=== PATIENT | female | born 1955 | race Caucasian/White ===

== ENCOUNTER 2019-04-16 01:11 | Observation (INO) ==
[2019-04-16] MEDS ORDERED: DUONEB (A & A) INH ONE (01:48)
[2019-04-16] MEDS ORDERED: SOLU-MEDROL IV ONE (01:48)
--- NOTE | 2019-04-16 02:10 | EKG Report ---
Test Performed on : 04/16/2019 01:16:20 AM Test Reason : SOB Blood Pressure : / mmHG Vent. Rate : 085 BPM Atrial Rate : 085 BPM P-R Int : 174 ms QRS Dur : 092 ms QT Int : 422 ms P-R-T Axes : -02 -34 084 degrees QTc Int : 502 ms Normal sinus rhythm. Left axis deviation Voltage criteria for left ventricular hypertrophy Cannot rule out Septal infarct , age undetermined T wave abnormality, consider lateral ischemia Abnormal ECG No previous ECGs available Unconfirmed Result
[2019-04-16 02:25] LABS: HEMATOCRIT 28.8 % (37.0-47.0); RBC 3.15 XMIL (4.2-5.4); WBC 6.26 X1000 (4.8-10.8)
[2019-04-16 02:26] LABS: BASO# 0.01 X1000 (0.0-0.2); BASO% 0.2 % (0.0-0.8); EOS# 0.08 X1000 (0.0-0.7); EOS% 1.3 % (0.0-10.0); IMM GRAN# 0.02 X1000 (0.0-0.04); IMM GRAN% 0.3 % (0.0-0.5); LYMPH# 1.01 X1000 (1.2-3.4); LYMPH% 16.1 % (20.5-51.1); MCH 31.7 PG (27-31); MCHC 34.7 g/dL (33-37); MCV 91.4 FL (81-99); MONO# 0.54 X1000 (0.11-0.59); MONO% 8.6 % (1.7-9.3); MPV 8.8 FL (7.4-10.4); NEUT% 73.5 % (42.2-75.2); PLT 161 X1000 (130-400); RDW 12.4 % (11.5-14.5)
[2019-04-16 03:07] LABS: ALBUMIN 3.8 g/dL (3.5-5.0); CALCIUM 8.9 mg/dL (8.8-10.2); POTASSIUM 3.9 mmol/L (3.5-5.1); TOTAL BILIRUBIN 0.73 mg/dL (0.20-1.00); TOTAL PROTEIN 5.7 g/dL (6.3-8.3)
[2019-04-16] MEDS ORDERED: BUMEX IV ONE (03:25)
--- NOTE | 2019-04-16 03:42 | PROVIDER DOCUMENTATION ---
This chart was entered by Arina Cotsa Scribe, acting as scribe for Thomas Cortés MD. HPI-Respiratory General - General Chief Complaint: Shortness of Breath Stated Complaint: SOB Time Seen by Provider: 04/16/19 01:34 Source: patient Allergies/Adverse Reactions: Patient Allergies Allergy/AdvReac Type Severity Reaction Status Date / Time Sulfa (Sulfonamide Allergy RASH Verified 12/10/17 23:34 Antibiotics) Home Medications: Home Medication List Medication Instructions Recorded Confirmed Last Taken Type Cholecalciferol (Vitamin D3) 1,000 unit PO DAILY 04/16/19 04/16/19 Unknown History [Vitamin D3] Insulin Glargine,Hum.rec.anlog 55 unit SQ DAILY 04/16/19 04/16/19 Unknown History [Lantus Solostar] Insulin Lispro [Humalog] 22 unit SQ TID 04/16/19 04/16/19 Unknown History Iron,Carbonyl [Iron] 65 mg PO DAILY 04/16/19 04/16/19 Unknown History Levothyroxine Sodium [Synthroid] 200 microgm PO DAILY 04/16/19 04/16/19 Unknown History Lisinopril 20 mg PO DAILY 04/16/19 04/16/19 Unknown History Metformin HCl [Metformin HCl ER] 500 mg PO DAILY 04/16/19 04/16/19 Unknown History Metoprolol Succinate 1 tab PO DAILY 04/16/19 04/16/19 Unknown History Rosuvastatin Calcium [Crestor] 40 mg PO DAILY 04/16/19 04/16/19 Unknown History Vitamin B Complex 1 ea PO DAILY 04/16/19 04/16/19 Unknown History - History of Present Illness-Resp Nature of Presenting Problem: Pt is 63/F presenting to ED w/ SOB that she sts has been present for the last week, but has worsened tonight. Pt sts that the only change that she has had in her medications recently is her upped her toperol. Pt denies any c/p or palpitations. Pt has hx of sleep apnea. Quality of Pain: reports: none Severity in ED: reports: moderate Onset/Duration: reports: 1 week ago Timing: reports: getting worse Exposure: reports: unknown cause Cough Quality/Degree: reports: no cough Episode Frequency: no prior episodes Current Respiratory Medication Therapy: Initiated none Modifying Factors: improves with: nothing Associated Symptoms: reports: shortness of breath. denies: cough Similar Symptoms Previously?: No Recently seen or treated by another doctor?: No Review of Systems - Adult - REVIEW OF SYSTEMS - ADULT Constitutional: reports: no symptoms reported. denies: chills, fever Eyes: reports: no symptoms reported Ears, Nose, Mouth & Throat: reports: no symptoms reported Cardiovascular: denies: chest pain Respiratory: reports: shortness of breath. denies: cough Gastrointestinal: reports: no symptoms reported Genitourinary: reports: no symptoms reported Musculoskeletal: reports: no symptoms reported Integumentary: reports: no symptoms reported Neurological: reports: no symptoms reported. denies: dizziness/vertigo, headache/migraines Psychiatric: reports: no symptoms reported Endocrine: reports: no symptoms reported Hematologic/Lymphatic: reports: no symptoms reported Allergic/Immunologic: reports: no symptoms reported All Other Systems: Reviewed and Negative Past History - Adult - PAST MEDICAL HISTORY-ADULT Review of Records: reports: Old Records Reviewed, Nursing Assessment Review, Medications Reviewed, Social history reviewed & non-contributory. Cardiovascular: reports: HTN Endocrine/Immune: reports: Diabetes - IMMUNIZATION STATUS Childhood Immunizations: See Nurse Assessment Flu Vaccine: See Nurse Assessment - SOCIAL HISTORY Smoking: denies, non-smoker Substance Use: none/never Living Situation: family Physical Exam-General - PHYSICAL EXAM-ADULT Initial Vital Signs Reviewed: Yes - CONSTITUTIONAL General Appearance: appears well, alert, no apparent distress - EYES Eyes: PERRL/EOMI, pink conjunctivae - HEAD, EARS, NOSE, MOUTH & THROAT HENMT: normocephalic/atraumatic, moist mucous membranes, normal ENT inspection, TMs normal, pharynx normal - NECK Neck: non-tender, full range of motion, supple - RESPIRATORY Respiratory: increased rate (26) - CARDIOVASCULAR Cardiovascular: regular rate, rhythm - MUSCULOSKELETAL Back Exam: normal inspection Extremity: normal range of motion, non-tender, normal gait, normal inspection - SKIN Integumentary: normal color, warm/dry - NEUROLOGIC Neurologic: grossly normal - PSYCHIATRIC Psych/Mental Status: normal mood/affect, normal thought content, normal thought process, oriented x 3 Progress - PLAN OF CARE/RESULTS Progress/Plan/Lab Results: Vital Signs - 8 hr 04/16/19 01:20 04/16/19 02:26 Temperature 99.1 F Pulse Rate 83 85 Respiratory Rate 26 H 15 Blood Pressure 183/78 O2 Sat by Pulse Oximetry 90 L Laboratory Results - last 24 hr 04/16/19 04/16/19 04/16/19 02:15 02:15 02:15 WBC 6.26 RBC 3.15 L Hgb 10.0 L Hct 28.8 L MCV 91.4 MCH 31.7 H MCHC 34.7 RDW Std Deviation 12.4 Plt Count 161 MPV 8.8 Immature Gran % (Auto) 0.3 Neut % (Auto) 73.5 Lymph % (Auto) 16.1 L [place] % (Auto) 8.6 Eos % (Auto) 1.3 Baso % (Auto) 0.2 Immature Gran # (Auto) 0.02 Neut # (Auto) 4.60 Lymph # (Auto) 1.01 L [place] # (Auto) 0.54 Eos # (Auto) 0.08 Baso # (Auto) 0.01 Sodium 140 Potassium 3.9 Chloride 102 Carbon Dioxide 25 Anion Gap 13 BUN 19 Creatinine 1.0 H Estimated GFR/1.73 m2 56 BUN/Creatinine Ratio 19 Glucose 268 H Calculated Osmolality 291 Calcium 8.9 Total Bilirubin 0.73 AST 12 ALT 14 Alkaline Phosphatase 17 L Troponin T Ahy-W-Thcoubbxwfq Pept 706 H Total Protein 5.7 L Albumin 3.8 Globulin 1.9 Albumin/Globulin Ratio 2.0 Plasma Lactate 04/16/19 04/16/19 02:15 02:20 WBC RBC Hgb Hct MCV MCH MCHC RDW Std Deviation Plt Count MPV Immature Gran % (Auto) Neut % (Auto) Lymph % (Auto) [place] % (Auto) Eos % (Auto) Baso % (Auto) Immature Gran # (Auto) Neut # (Auto) Lymph # (Auto) [place] # (Auto) Eos # (Auto) Baso # (Auto) Sodium Potassium Chloride Carbon Dioxide Anion Gap BUN Creatinine Estimated GFR/1.73 m2 BUN/Creatinine Ratio Glucose Calculated Osmolality Calcium Total Bilirubin AST ALT Alkaline Phosphatase Troponin T < 0.010 Bdo-X-Cinbzzsoffy Pept Total Protein Albumin Globulin Albumin/Globulin Ratio Plasma Lactate 1.6 Orders Category Date Time Status Nursing- Obtain EKG ONCE Care 04/16/19 01:46 Active CHEST-1 VIEW [RAD] Stat Exams 04/16/19 01:46 Taken CBC WITH ELECTRONIC DIFF [HEME] Stat Lab 04/16/19 02:15 Completed COMPREHENSIVE METABOLIC PANEL [CHEM] Stat Lab 04/16/19 02:15 Completed LACTATE, PLASMA [CHEM] Stat Lab 04/16/19 02:20 Completed PRO B-NATRIURETIC PEPTIDE Stat Lab 04/16/19 02:15 Completed TROPONIN T Stat Lab 04/16/19 02:15 Completed Albuterol 2.5MG/Ipratrop 0.5MG [Duoneb (A & A)] Med 04/16/19 01:48 D iscontinued 3 ml INH NOW ONE Bumetanide [Bumex] Med 04/16/19 03:25 Discontinued 1 mg IV NOW ONE Methylprednisolone Sod Succ [Solu-Medrol] Med 04/16/19 01:48 Discontinued 125 mg IV NOW ONE Aerosol Treatments Routine Oth 04/16/19 01:48 Completed Aerosol Treatments Stat Oth 04/16/19 01:48 Completed EKG [EKG] Stat Ther 04/16/19 01:46 Draft Result Diagrams: 04/16/19 02:15 04/16/19 02:15 Departure - Departure Date of Disposition Decision: 04/16/19 Time of Disposition Decision: 03:42 DIAGNOSIS: Pleural effusion Disposition: ADMITTED INPATIENT 09 Certified Medical Emergency: Emergent Condition: Stable Referrals and Follow-Ups: Davi Haider MD [Primary Care Provider] - - Critical Care Note This patient required my direct & personal management of CC.: No Attestation - Physician/ GARO Attestation Patient care was provided by Advanced Practice Provider:: No The physician spent face to face time with patient:: Yes Advanced Practice Provider documentation review:: Supervising physician onsite and consulted in the evaluation and care of this patient. The physician did have a face to face encounter with the patient. This chart was documented by the indicated scribe, (Arina Costa, Arabella) and accurately reflects the services I performed and decisions made by me, Thomas Cortés MD, as attested by the provider's signature.
[2019-04-16] MEDS ORDERED: ZOFRAN IV PRN (05:05)
[2019-04-16] MEDS ORDERED: TYLENOL PO PRN (05:05)
[2019-04-16] MEDS: LOVENOX SUBQ SCH (05:15)
[2019-04-16 06:13] LABS: CHOLESTEROL 138 mg/dL (0-200); HDL 40 mg/dL (45-65); LDL 53 mg/dL; TRIGLYCERIDES 227 mg/dL (35-135); VLDL 45 mg/dL
--- NOTE | 2019-04-16 06:31 | HISTORY AND PHYSICAL ---
PRIMARY CARE PHYSICIAN: Dr. Haider. CHIEF COMPLAINT: Dyspnea. HISTORY OF PRESENT ILLNESS: Ms. Koenig is a 63-year-old female who presents to the ER with a Past Medical History of hypertension, diabetes, hyperlipidemia, hypothyroidism, chronic kidney disease, stomach and colon cancer. The patient states that she started having shortness of breath since Tuesday. She states she was having difficulty getting around because she was getting so short of breath, was at [facility] and actually had to stop 3 times to take deep breaths. The patient states that also she is getting short of breath when she is talking, and sometimes just lying still but is worse when she is actually doing things. Patient states she has never had this happen before. She states that the doctor just recently increased her Toprol by Dr. Cabrera her kidney specialist. The patient states that she was on Ziac for her blood pressure that the medication was changed by Dr. Haider to Toprol and was just Toprol. The Toprol was just recently increased by Dr. Cabrera her kidney specialist. The patient states when she was on the Ziac she did not have any problems. Her blood pressure was good, and that since she has been on the Toprol she has been having difficulty with her blood pressure being elevated, and she believes this might have been the reason she has become short of breath. The patient states that she has been having a headache since she has been having the shortness of breath. She denies any chest pain, any dizziness or any nausea. She states her urine was dark on Tuesday when she initially started having the shortness of breath that now has since cleared up. The patient was recently in the hospital in August where she had a colon resection in [place] by Dr. Parker. She also had a procedure on her stomach, and they removed carcinoids and that was by Dr. Ndiaye. The patient is lying on the ER stretcher. She does appear to be somewhat short of breath with O2 sats 90% on room air. She is having some difficulty answering my questions, and has to take several deep breaths while answering my questions. She is using some accessory muscles when she does take her breaths, and breathing does look to be somewhat labored at times. Chest x-ray in the ER did show pulmonary edema. PAST MEDICAL HISTORY: Hypothyroidism, hypertension, diabetes, hyperlipidemia, chronic kidney disease, asthma as a child, stomach and colon cancer. Being followed by Dr. Reddy. PAST SURGICAL HISTORY: Colon resection in August [address] Parker in [place]. I believe an EGD done by Dr. Ndiaye where they did remove carcinoids from her stomach wall, and that was in September of 2018. FAMILY HISTORY: Mother from an DE. She also had diabetes and dementia. Her father . He apparently fell and hit his head, and was down for some time and shortly after that. Daughter has diabetes and sleep apnea. SOCIAL HISTORY: Patient lives here in [place]. 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 She denies any smoking, alcohol or drug abuse. ALLERGIES: Lasix, sulfa drugs, and niacin. MEDICATIONS: 1. Lantus 55 units subcu daily. 2. Humalog insulin 22 units subcutaneous t.i.d. 3. Iron 65 mg p.o. daily. 4. Synthroid 200 mcg p.o. daily. 5. Lisinopril 20 mg p.o. daily. 6. Metformin HCL extended release 500 mg p.o. daily. 7. Crestor 40 mg p.o. daily. 8. Vitamin B complex 1 tablet p.o. daily. 9. Vitamin D3 1000 units p.o. daily. 10. Metoprolol 50 mg p.o. daily. LABORATORY AND DIAGNOSTICS: White blood cell count 6.26, hemoglobin 10.0, hematocrit 28.8, and platelet count is 161,000. Sodium is 140, potassium 3.9, chloride is 102, carbon dioxide is 25, anion gap 13, BUN is 19, and creatinine is 1. Estimated GFR is 56, glucose is 268, calcium is 8.9, bilirubin is 0.73, AST is 12, ALT is 14, and alkaline phosphatase is 17. Troponin is less than 0.01. ProBNP is 706. Plasma lactate is 1.6. Albumin is 3.8. EKG shows normal sinus rhythm with left axis deviation, cannot rule out septal infarct or T wave abnormality. Consider lateral ischemia. The rate is 85 beats per minute. Chest x-ray shows pulmonary edema. REVIEW OF SYSTEMS: A 12 point review of systems has been obtained, and all are negative except for as stated above as in HPI. PHYSICAL EXAMINATION: VITAL SIGNS: Temperature 99.1 degrees, pulse rate 83, respiratory rate 26, blood pressure is 183/78, and O2 saturation is 90% on room air. Weight is 201 pounds. Height is 5 feet 4 inches. GENERAL: This is a 63-year-old female. She is lying on the ER stretcher. She is well nourished and well developed. She is in somewhat acute respiratory distress at this time on room air. HEENT: Atraumatic, normocephalic. Pupils are equal, round, and reactive to light. Extraocular movements intact. Sclerae is anicteric. Mucous membranes are dry. NECK: Supple. No lymphadenopathy. Trachea is midline. No JVD. No thyromegaly. No bruit. CV: Regular rate and rhythm. No gallops or rubs appreciated. The patient is positive for murmur. RESPIRATORY: Lung sounds are clear but diminished. There is equal chest excursion. Respirations are mildly labored. There is some accessory muscle usage. The patient has tachypnea. She is having to stop and take deep breaths while speaking with me. GI: Abdomen is soft and rounded. Nontender. Bowel sounds are present x4. NEUROLOGIC: Cranial nerves 2-12 are intact. The patient is awake, alert, and oriented. She is able to follow commands. MUSCULOSKELETAL: Full distal strength noted. No abnormalities. No deformities. EXTREMITIES: No clubbing, no cyanosis, no edema. DP and PT pulses are present and palpable. SKIN: Warm, dry, and intact. No rashes. No bruises. No diaphoresis. ASSESSMENT AND PLAN: 1. CHF exacerbation. We are going to admit this patient to the medical floor. We started the patient on Bumex 1 mg IV q.12 hours. The patient is allergic to Lasix. We are going to order echocardiogram on her for tomorrow. We have also consulted Cardiology. Patient does not have a emery grinder. We are going to repeat her labs in the morning. We will repeat her chest x- ray in the morning. 2. Diabetes mellitus. I have restarted the patient's home insulin and metformin. We are also going to check blood sugars before meals and at bedtime. Place her on sliding scale insulin. 3. Hypertension. The patient was on Toprol at home and lisinopril. We are going to stop the Toprol, and start her back on her Ziac. The patient believes that she has been feeling bad since she started her Toprol. She felt fine prior when she was taking the Ziac so we are going to change these up and put her back on her Ziac. 4. Hyperlipidemia. I have placed this patient back on her cholesterol medication. We will order a lipid profile for in the morning. 5. Hypothyroidism. This patient is on home Synthroid, so I have placed her back on her Synthroid. We will also check a TSH for in the morning. 6. Chronic kidney disease. The patient's creatinine right now is 1.0. Her estimated GFR is 56 minute. When I look back at the last lab that was done in December, her creatinine was 1.3 so this is an improvement from her last creatinine. Her last GFR in December, was 42 so kidney function shows a little improvement. 7. History of stomach and colon cancer. Patient is being seen by Dr. Reddy. Patient states on her last scan that she was cancer free. 8. Iron deficiency anemia. The patient is on home iron medication. We are going to resume that. 9. Deep venous thrombosis prophylaxis. I have ordered her Lovenox 40 mg subcu q. 24 hours. I have also ordered SCD's. 10. Gastrointestinal prophylaxis. I have ordered her Prilosec 40 mg p.o. daily and Zofran 4 mg IV q.4 hours for nausea. We are going to admit this patient to the medical floor. We are going to start her on Bumex 1 mg IV q.12 hours. I have restarted all her home medications. I did change her Toprol to Ziac. I have ordered labs for her in the morning. We are going to trend her CK and troponin's. We have ordered echocardiogram for her in the morning. I have also consulted Dr. Han for Cardiology. Start her on a diabetic diet. We are going to check her fingersticks before meals and at bedtime. I have resumed her insulin. All other further treatment pending hospital course. Dictated by RODOLFO Orr for Kristen Good MD cc: MD Davi Kaur MD MTDD
[2019-04-16 06:32] LABS: TSH 1.31 uIUmL (0.27-4.20)
--- NOTE | 2019-04-16 06:50 | Diag Imaging Result Doc PS360 ---
Chest x-ray two views - 04/16/2019 5:50 AM INDICATION: sob COMPARISON: 2:07 AM FINDINGS: There has been improvement in the pulmonary vascular congestion and bibasilar infiltrates/pulmonary edema. No large pleural effusion. IMPRESSION: Slight improvement from prior. Electronically signed by Deion Jaime 04/16/2019 6:47 AM
--- NOTE | 2019-04-16 06:51 | Diag Imaging Result Doc PS360 ---
CHEST-1 VIEW - 04/16/2019 INDICATION: sob COMPARISON: 08/19/2017 FINDINGS: There is cardiomegaly and pulmonary vascular congestion. There is ill-defined interstitial pulmonary edema in the lung bases. No large pleural effusion. IMPRESSION: Cardiomegaly and pulmonary edema. Electronically signed by Deion Jaime 04/16/2019 6:48 AM
[2019-04-16] MEDS ORDERED: ZIAC 5/6.25 MG PO SCH (09:00)
[2019-04-16] MEDS: BUMEX IV SCH ×2 (09:29→23:07)
[2019-04-16] MEDS: HUMULIN R SUBQ SCH ×5 (09:30→23:07)
[2019-04-16] MEDS: DUONEB (A & A) INH SCH ×3 (09:36→21:17)
[2019-04-16] MEDS: LANTUS INSULIN SUBQ SCH (09:45)
[2019-04-16] MEDS: HUMALOG SUBQ SCH ×2 (09:45→15:32)
[2019-04-16] MEDS: PRILOSEC PO SCH (09:46)
[2019-04-16] MEDS: GLUCOPHAGE XR PO SCH (09:46)
[2019-04-16] MEDS: VICON-C PO SCH (09:46)
[2019-04-16] MEDS: CRESTOR PO SCH (09:46)
[2019-04-16] MEDS: ICAR-C PO SCH (09:46)
[2019-04-16] MEDS: VITAMIN D PO SCH (09:46)
[2019-04-16] MEDS: SYNTHROID PO SCH (09:46)
[2019-04-16] MEDS: PRINIVIL PO SCH (09:46)
--- NOTE | 2019-04-16 13:55 | CARDIOLOGY CONSULTATION ---
DATE: 04/16/2019 CHIEF COMPLAINT: Dyspnea. HISTORY OF PRESENT ILLNESS: Ms. Koenig has been short of breath essentially since Tuesday morning when she woke up. She reports this occurs with any activity, even just sitting. She reports there is some improvement with lying down. It sounds like she has had some significant adjustments in her blood pressure medications recently with Toprol and Ziac being adjusted. She reports no acute lower extremity edema recently. She has had no chest pain. PAST MEDICAL HISTORY: Significant for: 1. Hypothyroidism. 2. Hypertension. 3. Diabetes. 4. Hyperlipidemia. 5. Chronic kidney disease. 6. Carcinoid. SOCIAL HISTORY: Lives in [place]. No tobacco, alcohol, or illicit drugs. FAMILY HISTORY: Mother had an RI, as well as diabetes and dementia. Father had some sort of traumatic head injury, it sounds like, prior to passing away. REVIEW OF SYSTEMS: A 10 system review of systems is negative except for those things mentioned in the HPI. PHYSICAL EXAMINATION: Afebrile. Heart rate 89, her blood pressure is 174/68 with a presenting blood pressure of 183/78. Her Is and Os, she does not have any intake or output recorded during the hospitalization. Generally, she is in no acute distress. HEENT: Oropharynx is moist. She has normal dentition. Her eye examination shows pink conjunctivae and white sclerae. Neck: Examination shows no obvious thyromegaly or thyroid tenderness. Cardiovascular: She sounds to be in a regular rate and rhythm. She has a soft 2/6 systolic murmur at the right upper sternal border. She has no lower extremity edema. Chest: Examination sounds clear. She has no increased work of breathing. Abdomen: Soft, nontender, nondistended. She has no obvious organomegaly. Skin Examination: Warm and dry throughout without any rashes. Neurological: She is moving all extremities well. No lateralizing deficits. PERTINENT DATA: EKG on presentation shows sinus rhythm, no Q-waves present, no significant ischemic changes, evidence for left ventricular hypertrophy. Her chest x-ray on presentation demonstrated the suggestion of cardiomegaly and pulmonary edema. Her subsequent chest x-ray this morning shows slight improvement from previous. Her laboratory data demonstrates a white count of 6.2, hematocrit of 28, platelet count of 161,000. Her sodium is 140, potassium is 3.9, BUN 19, creatinine is 1. Cardiac enzymes are negative times multiple sets. ProBNP is 706. Her LDL is 53. ASSESSMENT: Ms. Koenig is a 63-year-old female who presented with heart failure. PLAN: I will add in some antihypertensive medications with amlodipine. Notably since admission, she has had a reduction in her overall blood pressure treatment regimen. She is on IV Bumex. We do not have any intake or output data recorded. At this point, we will review her echocardiogram, which has been done. Consider stress testing after review of the echocardiogram. cc: Dex Han MD MTDD
[2019-04-16] MEDS: NORVASC PO SCH (15:33)
--- NOTE | 2019-04-16 15:42 | ECHO REPORT ---
ORDER DATE: 04/16/2019 INTERPRETING PHYSICIAN: Dr. Harrington REQUESTING PHYSICIAN: CLINICAL INDICATIONS: This is a 63-year-old female with CHF. M-MODE MEASUREMENTS: Right ventricle: cm. Left ventricle end diastole: 6.8 cm. Left ventricle end systole: 4.9 cm. Posterior wall: 0.8 cm. Interventricular septum: 1.1 cm. Left atrium: 4.4 cm. Aortic root: 3.2 cm. SUMMARY OF 2-DIMENSIONAL IMAGIN. The left ventricular function appears to be normal. Ejection fraction is 61%. The chamber is mildly enlarged. 2. The mitral annulus shows mild calcification. Color flow mapping of mitral valve indicates a mild to moderate degree of regurgitation. 3. Pulse wave Doppler of mitral inflow showed reversal of the E and A ratio. The ratio is 0.8. 4. Tissue Doppler of septal and lateral mitral annulus averages 5.2 cm. 5. There is impaired left ventricular relaxation. 6. Aortic valve opens normally. Color flow mapping is unremarkable. 7. The pulse wave Doppler of pulmonary venous flow is normal. 8. Tricuspid valve showed mild degree of regurgitation. 9. Pulmonary pressure is estimated at 32 mmHg. 10.Atria mildly enlarged. Clinical correlation is recommended. cc: Dillan Harrington MD
--- NOTE | 2019-04-16 19:27 | PROGRESS NOTE ---
DATE: 04/16/2019 BRIEF PROGRESS NOTE: Patient's dyspnea is markedly improved with diuresis overnight. States that most of her symptoms started after being taken off her bisoprolol/hydrochlorothiazide. Responding well to Bumex here. Allergic to Lasix. Acute coronary syndrome ruled out. Echocardiogram pending to assess left cardiac function, although she states that she had an essentially normal echocardiogram just a few weeks ago. Suspect diastolic congestive heart failure. Given patient's rapid improvement, if echocardiogram does not show severely reduced ejection fraction, can likely be discharged tomorrow. If the patient does not have severe ejection fraction reduction, then may be able to [*] hydrochlorothiazide which was reportedly working well for her previously. The patient has had significant hyperglycemia. Received a little over 90 units of insulin this morning, and still with glucoses in the 400s. Sliding scale increased to high. Glucose is still markedly elevated. We will increase scheduled mealtime insulin and continue to monitor and adjust as needed.
[2019-04-17] MEDS: DUONEB (A & A) INH SCH ×4 (05:23→22:15)
[2019-04-17] MEDS: HUMALOG SUBQ SCH ×3 (06:41→16:31)
[2019-04-17] MEDS: PRILOSEC PO SCH (06:41)
[2019-04-17] MEDS: LOVENOX SUBQ SCH (06:41)
[2019-04-17] MEDS: HUMULIN R SUBQ SCH ×3 (06:42→16:30)
--- NOTE | 2019-04-17 07:13 | EKG Report ---
Test Performed on : 04/17/2019 06:51:16 AM Test Reason : chest pain Blood Pressure : / mmHG Vent. Rate : 087 BPM Atrial Rate : 087 BPM P-R Int : 174 ms QRS Dur : 094 ms QT Int : 410 ms P-R-T Axes : -11 -39 091 degrees QTc Int : 493 ms Sinus rhythm. with occasional premature ventricular complexes. Left axis deviation Voltage criteria for left ventricular hypertrophy Cannot rule out Septal infarct (cited on or before 16-APR-2019) T wave abnormality, consider lateral ischemia Abnormal ECG When compared with ECG of 16-APR-2019 01:16, (Unconfirmed) premature ventricular complexes. are now present Confirmed by Toribio Fleming MD ([id number]) on 04/19/2019 7:18:15 AM
[2019-04-17 07:26] LABS: BASO# 0.01 X1000 (0.0-0.2); BASO% 0.2 % (0.0-0.8); EOS# 0.08 X1000 (0.0-0.7); EOS% 1.2 % (0.0-10.0); HEMOGLOBIN 10.4 g/dL (12.0-16.0); IMM GRAN# 0.03 X1000 (0.0-0.04); IMM GRAN% 0.5 % (0.0-0.5); LYMPH# 1.23 X1000 (1.2-3.4); LYMPH% 18.9 % (20.5-51.1); MCH 31.7 PG (27-31); MCHC 34.7 g/dL (33-37); MCV 91.5 FL (81-99); MONO% 9.2 % (1.7-9.3); NEUT# 4.56 X1000 (1.4-6.5); PLT 198 X1000 (130-400); RBC 3.28 XMIL (4.2-5.4); RDW 12.3 % (11.5-14.5); WBC 6.51 X1000 (4.8-10.8)
--- NOTE | 2019-04-17 07:35 | Diag Imaging Result Doc PS360 ---
EXAM: CHEST-PORTABLE INDICATION: chf TECHNIQUE: One view COMPARISON: 04/16/2019 FINDINGS: Pulmonary venous congestion and interstitial infiltrates most compatible with mild edema are approximately stable. No new consolidation is identified. Cardiac silhouette is stable. IMPRESSION: Essentially stable chest. Electronically signed by Cuong Thrasher 04/17/2019 7:33 AM
[2019-04-17 07:45] LABS: CALCIUM 9.4 mg/dL (8.8-10.2); CREATININE 1.2 mg/dL (0.5-0.9); MAGNESIUM 1.8 mg/dL (1.5-2.7); POTASSIUM 3.4 mmol/L (3.5-5.1)
[2019-04-17] MEDS: NORVASC PO SCH (08:27)
[2019-04-17] MEDS: PRINIVIL PO SCH (08:27)
[2019-04-17] MEDS: GLUCOPHAGE XR PO SCH (08:27)
[2019-04-17] MEDS: SYNTHROID PO SCH (08:27)
[2019-04-17] MEDS: ICAR-C PO SCH (08:27)
[2019-04-17] MEDS: BUMEX IV SCH (08:27)
[2019-04-17] MEDS: CRESTOR PO SCH (08:27)
[2019-04-17] MEDS: LANTUS INSULIN SUBQ SCH (08:28)
[2019-04-17] MEDS: VITAMIN D PO SCH (08:29)
[2019-04-17] MEDS: VICON-C PO SCH (08:29)
[2019-04-17] MEDS ORDERED: LEXISCAN ONE (10:37)
--- NOTE | 2019-04-17 13:06 | Diag Imaging Result Document ---
PROCEDURE NAME: MYOCARDIAL PERF SCAN, STR/REST - 04/17/2019 PROCEDURE: Lexiscan Cardiolite stress test. DESCRIPTION OF PROCEDURE IN DETAIL: Lexiscan was infused per standard protocol. There was no chest pain. Stress electrocardiogram was negative for ischemia. Following Lexiscan infusion, Cardiolite was injected. Total of 13.6 mCi of Cardiolite was injected for the rest phase; 36.1 mCi of Cardiolite was injected for the stress phase. Gated SPECT images reveal chest wall attenuation. There is a mixed defect in the anterior wall, as well as in the left ventricular apex. There is fixed defect, low to moderate grade, moderate size in the mid anterior wall and reversibility is noted further distally in the anterior wall. Left ventricle is dilated. There was also fixed defects noted in the left ventricular anteroseptal region with reversibility in the left ventricular apex. Again, this is a mixed defect noted. Left ventricular ejection fraction by gated SPECT was 60% and there was anterior wall hypokinesis. CONCLUSIONS: 1. No chest pain. 2. Negative Lexiscan stress electrocardiogram. 3. Myocardial perfusion images revealed mixed defect in the anterior, as well as in the left ventricular anteroseptal wall. However, there is reversibility in the distal anterior wall and reversibility was also noted in the left ventricular apex which again were mixed defects. The left ventricle is dilated with left ventricular end-diastolic volume of 160. There is some anterior wall hypokinesis. This could represent a cardiomyopathy picture as well. Left ventricular ejection fraction by gated SPECT was 61%. cc: MD Dex Mosqueda MD
--- NOTE | 2019-04-17 17:06 | CARDIOLOGY PROGRESS NOTE ---
DATE: 04/17/2019 SUBJECTIVE: Ms. Koenig has done well today. She has no chest pain complaints. OBJECTIVE: Vital signs: She is afebrile. Heart rate 85, blood pressure 153/63. Generally: No acute distress. Cardiovascular: She sounds to be in a regular rate and rhythm. She has no murmurs. She has no S3. She has no lower extremity edema. Chest: Clear bilaterally. She has no increased work of breathing. Abdomen: Soft, nontender. PERTINENT DATA: Her myocardial perfusion scan showed a normal ejection fraction of 61%. She had a mixed anterior defect as well as left ventricular anterior septal wall with some reversibility noted there. She had an echocardiogram yesterday demonstrating a preserved ejection fraction. Her lab data today shows a white count 6.5, hematocrit 30, platelet count is 198,000. Her sodium is 141, potassium 3.4, BUN 28, creatinine is 1.2. ASSESSMENT: Ms. Koenig is a 63-year-old female with new onset diastolic failure. PLAN: I have adjusted her medications. I have added in a dose of Coreg and have stopped her Bumex and placed her on hydrochlorothiazide. We will check labs in the morning. I will stop her metformin for a cardiac catheterization to be done in the morning. We will continue to pursue blood pressure control on this patient. We will recheck laboratories in the morning. Risks, benefits, and alternatives have been discussed. cc: Dex Han MD
[2019-04-17] MEDS ORDERED: MAGNESIUM SULFATE 2 GM/S.W.I. 2 GM/50 ML IVPB IV ONE (17:15)
[2019-04-17] MEDS: KLOR-CON PO SCH ×2 (18:14→20:41)
--- NOTE | 2019-04-17 18:23 | PROGRESS NOTE ---
DATE: 04/17/2019 INTERVAL HISTORY: Her shortness of breath has pretty much resolved. The patient had abnormal nuclear medicine stress test and looks like is supposed to go for coronary angiography tomorrow. The patient denies any chest pain. She is denying any shortness of breath. The patient's is at bedside. We discussed about heart failure with preserved ejection fraction, and I answered all of her questions. She is denying any chest pain. PHYSICAL EXAMINATION: Vital signs: Temperature 99.1 degrees, pulse 85, respiratory rate 18, blood pressure 150/63. She is saturating 97% on room air. General: Does not appear in any acute distress. heent: Oral cavity is moist. Lungs: Air entry bilaterally equal. No wheeze, rhonchi, crackles. Cardiovascular: S1, S2 normal. No murmur or gallop. Abdomen: Soft, nontender. Extremity: No lower extremity edema. Neurologic: She is alert and oriented x3. LABORATORIES: Suggestive of normocytic anemia, normal platelet count, hypokalemia which is being repleted. Appears to be an acute kidney injury on chronic kidney disease stage III. Hyperglycemia. MICROBIOLOGY: No data. IMAGING: Myocardial perfusion nuclear medicine scan had mixed defect in anterior as well as anteroseptal wall with reversibility in distal anterior wall and left ventricular apex with ejection fraction of 60%. ASSESSMENT AND PLAN: 1. Acute likely diastolic congestive heart failure. Followup coronary angiography report to rule out underlying coronary artery disease. As per Cardiology recommendation, I will stop bumetanide. She is not in any shortness of breath. Input and output have not been charted properly. Continue essential hypertension management with amlodipine, carvedilol, lisinopril, and rosuvastatin for hyperlipidemia. 2. Acute kidney injury on likely chronic kidney disease stage III. Continue to monitor BMP. Replete potassium for hypokalemia and magnesium as well for her frequent premature ventricular contractions. I will also continue her on hydrochlorothiazide. 3. History of insulin-dependent diabetes mellitus type 2. At home she is on 55 units of Lantus and 22 units of Aspart with meals. I will continue currently increased dose of Lantus and mealtime insulin with sliding scale insulin. 4. Others. Continue levothyroxine for hypothyroidism and enoxaparin for deep venous thrombosis prophylaxis. DISPOSITION: Continue to monitor the patient inside the hospital for coronary angiography results. Plan of care discussed with her and her at bedside. All of their questions have been answered. cc: Shravan Gomes MD
[2019-04-18] MEDS: HUMULIN R SUBQ SCH ×4 (02:16→16:19)
[2019-04-18] MEDS: DUONEB (A & A) INH SCH ×3 (03:10→15:33)
[2019-04-18] MEDS: PRILOSEC PO SCH (06:10)
[2019-04-18] MEDS: HUMALOG SUBQ SCH ×3 (06:10→16:18)
[2019-04-18] MEDS: LOVENOX SUBQ SCH (06:10)
[2019-04-18 07:14] LABS: BASO# 0.02 X1000 (0.0-0.2); BASO% 0.5 % (0.0-0.8); EOS# 0.27 X1000 (0.0-0.7); EOS% 6.5 % (0.0-10.0); HEMATOCRIT 29.7 % (37.0-47.0); HEMOGLOBIN 10.1 g/dL (12.0-16.0); IMM GRAN# 0.02 X1000 (0.0-0.04); IMM GRAN% 0.5 % (0.0-0.5); LYMPH# 1.23 X1000 (1.2-3.4); LYMPH% 29.6 % (20.5-51.1); MCH 31.6 PG (27-31); MCV 92.8 FL (81-99); MONO# 0.43 X1000 (0.11-0.59); MONO% 10.4 % (1.7-9.3); MPV 8.5 FL (7.4-10.4); NEUT# 2.18 X1000 (1.4-6.5); NEUT% 52.5 % (42.2-75.2); PLT 193 X1000 (130-400); RDW 12.6 % (11.5-14.5); WBC 4.15 X1000 (4.8-10.8)
[2019-04-18 07:22] LABS: INR 1.15; PROTIME 14.9 Seconds (11.0-16.0)
[2019-04-18 07:38] LABS: CALCIUM 8.7 mg/dL (8.8-10.2); CREATININE 1.2 mg/dL (0.5-0.9); MAGNESIUM 2.3 mg/dL (1.5-2.7)
[2019-04-18] MEDS: PRINIVIL PO SCH (08:13)
[2019-04-18] MEDS: NORVASC PO SCH (08:13)
[2019-04-18] MEDS: ICAR-C PO SCH (08:14)
[2019-04-18] MEDS: CRESTOR PO SCH (08:14)
[2019-04-18] MEDS: VITAMIN D PO SCH (08:14)
[2019-04-18] MEDS: VICON-C PO SCH (08:14)
[2019-04-18] MEDS: SYNTHROID PO SCH (08:14)
[2019-04-18] MEDS ORDERED: HEPARIN 1000 UNITS/NS 2,000 UNIT/1,000 ML IV.SOLN ONE (08:26)
[2019-04-18] MEDS ORDERED: XYLOCAINE 1% ONE (08:28)
[2019-04-18] MEDS ORDERED: COREG PO SCH (09:00)
[2019-04-18] MEDS ORDERED: HYDROCHLOROTHIAZIDE PO SCH (09:00)
[2019-04-18] MEDS ORDERED: VERSED ONE (09:06)
[2019-04-18] MEDS ORDERED: MORPHINE ONE ×2 (09:07→09:52)
[2019-04-18] MEDS ORDERED: LABETALOL (DOSE) IV ONE (09:45)
[2019-04-18] MEDS ORDERED: NS 1,000 ML IV SCH (10:45)
--- NOTE | 2019-04-18 11:10 | EKG Report ---
Test Performed on : 04/18/2019 10:59:50 AM Test Reason : post cardiac cath Blood Pressure : / mmHG Vent. Rate : 065 BPM Atrial Rate : 065 BPM P-R Int : 194 ms QRS Dur : 092 ms QT Int : 470 ms P-R-T Axes : -14 -04 -08 degrees QTc Int : 488 ms Normal sinus rhythm. Moderate voltage criteria for LVH, may be normal variant Cannot rule out Septal infarct (cited on or before 16-APR-2019) T wave inversion in Inferolateral leads Abnormal ECG When compared with ECG of 17-APR-2019 06:51, (Unconfirmed) premature ventricular complexes. are no longer present T wave inversion now evident in Inferior leads T wave inversion less evident in Lateral leads Confirmed by Lonnie COBOS, Toribio ([id number]) on 04/19/2019 7:37:19 AM
[2019-04-18] MEDS: LANTUS INSULIN SUBQ SCH (11:15)
[2019-04-18 16:19] VITALS: BP 161/62
--- NOTE | 2019-04-19 05:17 | DISCHARGE SUMMARY ---
ADMISSION DATE: 04/16/2019 DISCHARGE DATE: 04/18/2019 DISCHARGE DISPOSITION: Home. DISCHARGE CONDITION: Hemodynamically stable. She is denying any chest pain or shortness of breath. She just underwent coronary angiography. According to the report given to me by the nursing team and a brief scan report, she did not have any significant coronary artery disease. DISCHARGE DIAGNOSES: 1. Mild acute diastolic congestive heart failure. 2. Essential hypertension. 3. Hyperglycemia with insulin-dependent diabetes mellitus. 4. Acute kidney injury. OTHER DIAGNOSES: 1. History of chronic kidney disease stage 3. 2. History of insulin-dependent diabetes mellitus type 2. 3. Essential hypertension. 4. Hypothyroidism. 5. Hyperlipidemia. DISCHARGE MEDICATIONS: 1. Rosuvastatin 40 mg daily. 2. Insulin lispro 22 units with meals 3 times a day. 3. Insulin glargine 55 units daily. 4. Iron carbonyl 65 mg daily. 5. Metformin 500 mg daily. 6. Levothyroxine 200 mcg daily. 7. Vitamin B complex 1 tablet daily. 8. Cholecalciferol 1000 units daily. 9. Carvedilol 3.125 mg daily. 10. Hydrochlorothiazide 25 mg daily. 11. Lisinopril 20 mg daily. 12. Amlodipine 5 mg daily. VITALS: At the time of discharge, temperature 97.6 degrees, pulse 70, respiratory rate 17, blood pressure 160/60, and saturating 97% on room air. PHYSICAL EXAMINATION: General: The patient does not appear in any acute distress. HEENT: Oral cavity is moist. Lungs: Air entry bilaterally equal. No wheezing, rhonchi or crackles. Heart: Normal. No murmur or gallop. Abdomen: Soft and nontender. No lower extremity edema. Neurologic: She is alert and oriented x3. LABORATORY: At the time of discharge, WBC 4.15, hemoglobin 10.1, platelet 193,000, INR 1.15. Potassium 4, BUN 27, creatinine 1.2, blood sugar 206, BNP 480. MICROBIOLOGY DURING HOSPITAL ADMISSION: None. SIGNIFICANT IMAGING AND PROCEDURES DURING HOSPITAL ADMISSION: Chest x-ray on admission had cardiomegaly and pulmonary edema. Echocardiogram on 04/16 had left ventricular ejection fraction of 61% with mild enlargement, impaired left ventricular relaxation, pulmonary artery pressure of 32 mmHg. Chest x-ray on 04/17/2019 had interstitial infiltrate, and was stable with only mild edema. Myocardial perfusion scan on 04/17 had mixed defect in the anterior as well as left ventricular anteroseptal wall. There was also reversibility in distal anterior wall and reversibility in left ventricular apex. The left ventricle was dilated with end-diastolic volume of 160 with anterior wall hypokinesia. Patient underwent coronary angiography on 04/18/2019. The official final report is pending. However, I was informed there was no significant coronary artery disease, and it was okay from piercing specialist perspective to discharge the patient. HOSPITAL COURSE SUMMARY: Ms. Koenig is a 63 year old lady with past medical history of essential hypertension and insulin-dependent diabetes mellitus type 2, who presented on 04/16/2019 with chief complaints of dyspnea. Apparently, recently her doctor had increased her Toprol dose. She was on bisoprolol hydrochlorothiazide to begin with which was changed to only Toprol. However, after the change, her blood pressure was remaining on the higher side and so her shortness of breath went to an extent that she decided to come to the emergency room. In the emergency room, she was found to be having acute hypoxic respiratory failure with saturations as low as 90. She was started on intravenous bumetanide following which her acute pulmonary edema resolved. Later on, bumetanide was stopped, and she was restarted back on hydrochlorothiazide. It was thought that her acute pulmonary edema was secondary to acute diastolic congestive heart failure as evidenced on nuclear medicine myocardial perfusion stress test as well as echocardiogram. Ejection fraction however was 60% with abnormal relaxation. Nuclear medicine stress test had detected a mixed defect involving left ventricular apex, and so she underwent coronary angiography which did not detect any significant coronary artery disease. At the time of discharge, the patient was hemodynamically stable. Her medication regimens were changed according to cardiology's recommendation to include hydrochlorothiazide, lisinopril, beta scott and amlodipine which she was tolerating well. She was advised to follow up with her regular doctor as well as heart doctor for further adjustment in the medication as required in the future. Myocardial perfusion image, there was negative Lexiscan stress electrocardiogram. There was mixed defect in the anterior as well as left ventricular anteroseptal wall. There was also reversibility in distal anterior wall and left ventricular apex. TIME SPENT: More than 30 minutes were spent in discharging the patient. All of her questions were answered satisfactorily. cc: Shravan Gomes MD
== END 2019-04-18 19:00 | disposition home or self-care (01) ==
LOC: ED 01:11 → INTOOBSV 01:12 → 3N 01:12 → SUATTDRO 01:12 → 3S 04-18 10:18
PROVIDERS: ATTEND Internal Medicine
CPT/HCPCS: 71010; 71045; 78452; 80048; 80053; 80061; 82550; 82607; 82746; 82948; 83036; 83605; 83735; 83880; 84443; 84484; 85025; 85610; 93005; 93010; 93017; 93306; 93458; 94640; 94761; A9270; A9500; J1644; J1650; J1815; J2250; J2270; J2785; J2930; J3475; J7030; Q9967; S0171; XXXXX